=== PATIENT | female | born 1935 | race Caucasian/White ===

== ENCOUNTER 2022-03-05 21:13 | Emergency (ER) | payer MEDICARE ==
[2022-03-05] MEDS ORDERED: Boostrix 0.5 ML (Tdap) VIAL (>/=7 yrs of age) ONE (21:48)
[2022-03-05] MEDS ORDERED: Lidocaine 1% (PF) 30 ML VIAL ONE (21:48)
[2022-03-05] MEDS ORDERED: Bacitracin 1 PK ONE (22:38)
== END 2022-03-06 01:30 ==
LOC: NAV ERS 21:13
DX: S61.011A Laceration without foreign body of right thumb without damage to nail, initial encounter (principal); M25.562 Pain in left knee; M25.561 Pain in right knee; I10 Essential (primary) hypertension; W18.30XA Fall on same level, unspecified, initial encounter; Z23 Encounter for immunization; Z79.899 Other long term (current) drug therapy; Z79.82 Long term (current) use of aspirin
CPT/HCPCS: 12002; 90471; 90715; J2001